=== PATIENT | male | born 1995 | race Caucasian/White ===

== ENCOUNTER 2020-03-18 19:58 | Emergency (ER) | payer BC ==
[~2020-03-18] VITALS: Ht 182.9 cm; Wt 93.2 kg
[2020-03-18 20:06] VITALS: Ht 182.9 cm; Wt 93.2 kg
[2020-03-18 23:00] VITALS: BP 128/89
== END 2020-03-18 23:00 | disposition home or self-care (01) ==
LOC: ED 19:58
DX: S05.31XA Ocular laceration without prolapse or loss of intraocular tissue, right eye, initial encounter (principal); W21.05XA Struck by basketball, initial encounter; Y93.67 Activity, basketball; Y92.310 Basketball court as the place of occurrence of the external cause; Y99.8 Other external cause status
CPT/HCPCS: 90715; J0690